=== PATIENT | female | born 1970 | race Caucasian/White ===

== ENCOUNTER 2019-02-01 11:49 | Inpatient (IN) | payer OTHER ==
[~2019-02-01] VITALS: Ht 170.2 cm; Wt 91.5 kg
[2019-02-01] MEDS ORDERED: SODIUM CHLORIDE 0.9% 1,000 ML IV ONE (12:19)
[2019-02-01 13:24] LABS: Basophils # (auto) 0 uL; Eosinophils # (auto) 0.3 uL; Hematocrit 34.2 % (36.0-46.0); Hemoglobin 11.4 g/dL (12.2-16.2); Lymphocytes # (auto) 0.8 uL; Mean Corpuscular Hgb Conc. 33.4 g/dL (32.0-36.0); Monocytes # (auto) 0.2 uL; Monocytes % (auto) 6.6 % (0.0-12.0); White Blood Cell 3.6 10^3/uL (4.4-10.8)
[2019-02-01 13:25] LABS: Basophils % (auto) 0.9 % (0.0-2.0); Eosinophils % (auto) 7.3 % (0.0-7.0); Lymphocytes % (auto) 21.3 % (10.0-50.0); Mean Corpuscular Hemoglobin 27.7 pg (28.0-32.0); Mean Corpuscular Volume 82.9 fL (80.0-100.0); Neutrophils # (auto) 2.3 uL; Neutrophils % (auto) 63.9 % (37.0-80.0); Nucleated Red Blood Cells % 0.1 %; Red Blood Cells 4.12 10^6/uL (4.0-5.20); Red Cell Distribution Width 14.1 % (11.8-14.3)
[2019-02-01 13:30] LABS: Platelet Count (auto) 11 10^3/uL (140-450)
[2019-02-01 13:45] LABS: INR 1.01 (0.9-1.15); Partial Thromboplastin Time 22.6 sec (23.64-32.05)
[2019-02-01 13:50] LABS: Alanine Aminotransferase 13 U/L (13-56); Albumin 3.4 g/dL (3.4-5.0); Anion Gap 7 (5-15); Aspartate Aminotransferase 12 U/L (15-37); BUN/Creatinine Ratio 10.7; Blood Urea Nitrogen 8 mg/dL (7-18); Calcium 8.4 mg/dL (8.5-10.1); Carbon Dioxide 26 mmol/L (21-32); Chloride 109 mmol/L (98-107); GFR African American 106 mL/min; GFR Non-African American 88 mL/min; Glucose 119 mg/dL (74-106); Sodium 142 mmol/L (136-145)
[2019-02-01 13:55] LABS: Alkaline Phosphatase 34 U/L (45-117); Bilirubin, Total 0.3 mg/dL (0.2-1.0); Total Protein 7.2 g/dL (6.4-8.2)
[2019-02-01] MEDS ORDERED: IOHEXOL 300 MG/ML 100ML BOTTLE IJ ONE ×3 (14:02→18:45)
[2019-02-01 15:29] LABS: Urine Bacteria FEW /hpf (None Seen); Urine Blood 1+ /uL (Negative); Urine Specific Gravity 1.011 (1.001-1.035); Urine WBC 1 /hpf (0 - 5)
[2019-02-01 17:33] VITALS: BP 113/56
[2019-02-01 17:52] VITALS: BP 121/79
[2019-02-01] MEDS ORDERED: NITROGLYCERIN 0.4 MG SL TAB SL PRN (18:15)
[2019-02-01] MEDS: SODIUM CHLORIDE 0.9% 1,000 ML IV SCH (18:15)
[2019-02-01] MEDS ORDERED: MORPHINE SULF INJ 2 MG/ML SYRINGE 1ML IV PRN (18:15)
[2019-02-01] MEDS ORDERED: IODIXANOL 320MG/ML 100ML BTL IV ONE (19:12)
[2019-02-01 19:27] LABS: CRP High Sensitivity 0.04 mg/dL (< 0.3)
[2019-02-01 21:00] VITALS: BP 123/53
[2019-02-02] MEDS: SODIUM CHLORIDE 0.9% 1,000 ML IV SCH ×2 (04:15→14:23)
[2019-02-02 04:35] LABS: Basophils # (auto) 0 uL; Eosinophils # (auto) 0.3 uL; Eosinophils % (auto) 8.1 % (0.0-7.0); Hemoglobin 10.6 g/dL (12.2-16.2); Monocytes # (auto) 0.3 uL; Neutrophils % (auto) 54.7 % (37.0-80.0); Nucleated Red Blood Cells % 0.1 %; White Blood Cell 3.7 10^3/uL (4.4-10.8)
[2019-02-02 04:37] LABS: Hematocrit 30.3 % (36.0-46.0); Lymphocytes % (auto) 28.1 % (10.0-50.0); Mean Corpuscular Hemoglobin 28.6 pg (28.0-32.0); Mean Corpuscular Hgb Conc. 34.9 g/dL (32.0-36.0); Monocytes % (auto) 8.1 % (0.0-12.0); Red Cell Distribution Width 14.1 % (11.8-14.3)
[2019-02-02 04:44] LABS: INR 1.04 (0.9-1.15); Partial Thromboplastin Time 23.6 sec (23.64-32.05)
[2019-02-02 04:46] LABS: Platelet Count (auto) 14 10^3/uL (140-450)
[2019-02-02 04:50] LABS: Calcium 7.6 mg/dL (8.5-10.1)
[2019-02-02 04:53] LABS: BUN/Creatinine Ratio 9.1; Bilirubin, Total 0.4 mg/dL (0.2-1.0); Total Protein 6.4 g/dL (6.4-8.2)
[2019-02-02] MEDS ORDERED: cefTRIAXone 1GM/50ML D5W 50 ML IV SCH (09:00)
[2019-02-02] MEDS ORDERED: methylPREDNISolone SOD SUCC 125 MG/2 ML VL IV SCH (12:00)
[2019-02-02] MEDS: methylPREDNISolone SOD SUCC 250 MG in SODIUM CHL 0.9% 100 ML IV SCH ×3 (12:38→23:48)
[2019-02-03] MEDS: SODIUM CHLORIDE 0.9% 1,000 ML IV SCH ×2 (00:38→10:22)
[2019-02-03] MEDS: methylPREDNISolone SOD SUCC 250 MG in SODIUM CHL 0.9% 100 ML IV SCH (06:10)
[2019-02-03 08:54] LABS: Basophils # (auto) 0 uL; Eosinophils # (auto) 0 uL; Neutrophils # (auto) 4.3 uL; Platelet Count (auto) 37 10^3/uL (140-450); Red Cell Distribution Width 13.6 % (11.8-14.3)
[2019-02-03 08:55] LABS: Basophils % (auto) 0.4 % (0.0-2.0); Hematocrit 31.9 % (36.0-46.0); Lymphocytes # (auto) 0.3 uL; Lymphocytes % (auto) 7.4 % (10.0-50.0); Mean Corpuscular Hemoglobin 28.2 pg (28.0-32.0); Mean Corpuscular Hgb Conc. 34.3 g/dL (32.0-36.0); Monocytes # (auto) 0 uL; Monocytes % (auto) 1.1 % (0.0-12.0); Neutrophils % (auto) 91.1 % (37.0-80.0); Nucleated Red Blood Cells % 0.1 %; Red Blood Cells 3.89 10^6/uL (4.0-5.20); White Blood Cell 4.7 10^3/uL (4.4-10.8)
[2019-02-03] MEDS: methylPREDNISolone SOD SUCC 125 MG in SODIUM CHL 0.9% 100 ML IV SCH ×3 (09:00→17:42)
[2019-02-03 10:05] LABS: Hepatitis B Surface Antibody Negative
[2019-02-03] MEDS ORDERED: IBUPROFEN 400 MG TAB PO ONE (10:15)
[2019-02-03 12:35] LABS: Hepatitis B Surface Antigen Negative (Negative); Hepatitis C Antibody Negative (Negative)
[2019-02-03 17:16] VITALS: BP 139/71
--- NOTE | 2019-02-03 17:55 | NUR ---
RECEIVED PT TO ROOM APPROX 1030. A/O X 4 . AMBULATORY. DENIES PAIN. VSS. MONITORING CLOSELY.
--- NOTE | 2019-02-03 19:30 | NUR ---
Opening shift note Patient in bed alert and oriented x 4 verbally coherent able to make needs known. Patient denies pain and discomfort at this time. Plan of care discussed, patient verbalized understanding. Spouse at bedside. All needs attended, will continue to monitor.
--- NOTE | 2019-02-03 21:01 | NUR ---
Patient complained of nausea. Paged [employer]PERVIS[employer] Mejia awaiting call back.
[2019-02-03] MEDS ORDERED: ONDANSETRON HCL 4 MG/2 ML VIAL IV PRN (21:30)
[2019-02-03 21:50] VITALS: BP 122/51
[2019-02-04] MEDS: methylPREDNISolone SOD SUCC 125 MG in SODIUM CHL 0.9% 100 ML IV SCH ×2 (00:30→06:15)
[2019-02-04] MEDS: SODIUM CHLORIDE 0.9% 1,000 ML IV SCH ×2 (01:46→06:15)
[2019-02-04 04:43] VITALS: BP 108/46
[2019-02-04 06:29] LABS: Basophils # (auto) 0 uL; Basophils % (auto) 0.3 % (0.0-2.0); Eosinophils # (auto) 0 uL; Hematocrit 33.1 % (36.0-46.0); Hemoglobin 11.3 g/dL (12.2-16.2); Lymphocytes # (auto) 0.5 uL; Lymphocytes % (auto) 5.1 % (10.0-50.0); Mean Corpuscular Hemoglobin 28.1 pg (28.0-32.0); Mean Corpuscular Hgb Conc. 34.2 g/dL (32.0-36.0); Mean Corpuscular Volume 82.2 fL (80.0-100.0); Monocytes # (auto) 0.2 uL; Monocytes % (auto) 2.3 % (0.0-12.0); Neutrophils # (auto) 8.3 uL; Neutrophils % (auto) 92.3 % (37.0-80.0); Nucleated Red Blood Cells % 0.1 %; Platelet Count (auto) 87 10^3/uL (140-450); Red Blood Cells 4.03 10^6/uL (4.0-5.20); Red Cell Distribution Width 14.2 % (11.8-14.3)
[2019-02-04 09:10] VITALS: BP 130/70
== END 2019-02-04 10:00 | disposition home or self-care (01) | DRG 813 ==
LOC: ER 11:49 → TELE 11:50 → CENTRAL 02-03 10:39
PROVIDERS: ADMIT Nurse Practitioner Acute Care; ATTEND Family Medicine
PROC: 30233R1 Transfusion of Nonautologous Platelets into Peripheral Vein, Percutaneous Approach (ICD-10-PCS; principal; 2019-02-01)
DX: D69.3 Immune thrombocytopenic purpura (principal); K11.5 Sialolithiasis; D64.9 Anemia, unspecified; M32.9 Systemic lupus erythematosus, unspecified; K11.20 Sialoadenitis, unspecified; R59.9 Enlarged lymph nodes, unspecified; K11.0 Atrophy of salivary gland; S30.0XXA Contusion of lower back and pelvis, initial encounter; S90.32XA Contusion of left foot, initial encounter; S90.31XA Contusion of right foot, initial encounter; X58.XXXA Exposure to other specified factors, initial encounter; Y93.89 Activity, other specified; Z80.42 Family history of malignant neoplasm of prostate; Z80.41 Family history of malignant neoplasm of ovary; Z80.49 Family history of malignant neoplasm of other genital organs; Y92.89 Other specified places as the place of occurrence of the external cause; Y99.8 Other external cause status; Z79.899 Other long term (current) drug therapy
CPT/HCPCS: 36415; 70470; 70491; 71045; 71260; 74177; 80053; 81001; 82607; 83615; 84436; 84443; 84484; 85025; 85610; 85652; 85730; 86038; 86141; 86225; 86235; 86706; 86803; 86850; 86900; 86901; 87340; G0378; J0696; Q9967

== ENCOUNTER 2019-02-09 20:05 | Inpatient (IN) | payer OTHER ==
[~2019-02-09] VITALS: Ht 170.2 cm; Wt 81.6 kg
[2019-02-09 23:07] LABS: Mean Corpuscular Hgb Conc. 34.1 g/dL (32.0-36.0)
[2019-02-09 23:09] LABS: Hematocrit 33.6 % (36.0-46.0); Hemoglobin 11.5 g/dL (12.2-16.2); Mean Corpuscular Hemoglobin 27.7 pg (28.0-32.0); Mean Corpuscular Volume 81.1 fL (80.0-100.0); Red Blood Cells 4.15 10^6/uL (4.0-5.20); Red Cell Distribution Width 14.1 % (11.8-14.3); White Blood Cell 8.1 10^3/uL (4.4-10.8)
[2019-02-09 23:14] LABS: Platelet Count (auto) 8 10^3/uL (140-450)
[2019-02-09 23:15] LABS: Basophils % (manual) 0 (0.0-2.0); Blast Cells 0; Metamyelocytes % 0; Myelocytes % 0; Promyelocytes % 0; Reactive Lymphocytes 0
[2019-02-09 23:23] LABS: Albumin 3.3 g/dL (3.4-5.0); BUN/Creatinine Ratio 21.2; Calcium 8.5 mg/dL (8.5-10.1); Potassium 4.1 mmol/L (3.5-5.1)
[2019-02-09 23:26] LABS: Bilirubin, Total 0.3 mg/dL (0.2-1.0); Total Protein 6.7 g/dL (6.4-8.2)
[2019-02-09 23:27] LABS: INR 1.05 (0.9-1.15)
[2019-02-09 23:36] LABS: Band Neutrophils % (manual) 4; Eosinophils % (manual) 1 (0-7); Lymphocytes % (manual) 9 (10.0-50.0); Monocytes % (manual) 4 (0-12)
[2019-02-10] VITALS (8 sets, daily range): BP systolic 106–133; BP diastolic 47–76
[2019-02-10 01:22] LABS: Urine Bacteria FEW /hpf (None Seen); Urine Blood 1+ /uL (Negative); Urine Mucus FEW (None Seen); Urine Specific Gravity 1.015 (1.001-1.035); Urine WBC 1 /hpf (0 - 5)
[2019-02-10] MEDS ORDERED: predniSONE 20 MG TAB PO ONE (03:30)
[2019-02-10] MEDS ORDERED: ONDANSETRON HCL 4 MG/2 ML VIAL IV PRN (04:45)
[2019-02-10] MEDS ORDERED: ACETAMINOPHEN 500 MG TAB PO PRN (04:45)
[2019-02-10 05:11] LABS: Hemoglobin 10.7 g/dL (12.2-16.2); Mean Corpuscular Hemoglobin 27.8 pg (28.0-32.0); Mean Corpuscular Hgb Conc. 34.4 g/dL (32.0-36.0); Mean Corpuscular Volume 80.9 fL (80.0-100.0); Red Blood Cells 3.84 10^6/uL (4.0-5.20); Red Cell Distribution Width 14.2 % (11.8-14.3); White Blood Cell 9.6 10^3/uL (4.4-10.8)
[2019-02-10 05:28] LABS: BUN/Creatinine Ratio 20.9
[2019-02-10 05:29] LABS: Platelet Count (auto) 8 10^3/uL (140-450)
[2019-02-10 05:30] LABS: Blast Cells 0; Eosinophils % (manual) 0 (0-7); Myelocytes % 0; Promyelocytes % 0; Reactive Lymphocytes 0
[2019-02-10 05:46] LABS: Band Neutrophils % (manual) 2; Basophils % (manual) 1 (0.0-2.0); Lymphocytes % (manual) 11 (10.0-50.0); Metamyelocytes % 2; Monocytes % (manual) 5 (0-12)
[2019-02-10] MEDS ORDERED: HYDROcodone-ACET 5/325MG TAB PO PRN (06:15)
[2019-02-10] MEDS ORDERED: PRE5T (06:54)
--- NOTE | 2019-02-10 07:08 | NUR ---
Telemetry admit from [facility] admitted to Telemetry unit after SBAR received. Patient oriented to room and routines,primary RN Carly Moreland, [facility], room 272, bed A, Pt educated on unit policies regarding patient care and visiting hours. Patient now on continuous telemetry monitoring, tele box #[id number] and telemetry reading on arrival to unit is Sinus Rythym. weighed by bedscale and encouraged to call if they need something. Plan of care discussed all questions and concerns addressed, patient verbalized understanding,agreeable.
--- NOTE | 2019-02-10 07:10 | NUR ---
REPORT GIVEN TO PRETTY PT RESTING IN BED, NO ACUTE DISTRESS NOTED, NO COMPLAINTS VOICED, BED IN LOW POSITION, SR X 2 UP.
--- NOTE | 2019-02-10 08:49 | NUR ---
PLATELETS UNAVAILABLE Call placed to blood bank, RN spoke with Sabine who states plt's have been ordered but are not available at this time. Sabine states she will call RN once plt's available for transfusion. Patient aware of transfusion order, consents are signed and in chart.
--- NOTE | 2019-02-10 09:00 | NUR ---
EDUCATION Patient provided with printed and verbal education on diagnoses, tests, and treatments. Patient verbalized understanding and stated "thank you". Patients and best friend at bedside.
[2019-02-10] MEDS: PANTOPRAZOLE 40 MG TAB PO SCH (10:38)
--- NOTE | 2019-02-10 13:06 | NUR ---
TRANSFUSION Patient in restroom at this time, unable to check V.S. and increase rate of infusion. Will continue to monitor and follow through once patient returns to bed.
[2019-02-10] MEDS ORDERED: DEXTROSE (50%) 50ML SYRG IV PRN (13:15)
--- NOTE | 2019-02-10 13:28 | NUR ---
ROUNDING Dr Davidson rounding at nursing station. Orders to repeat CBC one hour post transfusion and call MD with results.
[2019-02-10] MEDS ORDERED: predniSONE 20 MG TAB PO SCH (14:00)
[2019-02-10] MEDS: methylPREDNISolone SOD SUCC 125 MG/2 ML VL IV SCH ×3 (14:02→23:53)
[2019-02-10 15:47] LABS: Basophils # (auto) 0 uL; Eosinophils # (auto) 0 uL; Eosinophils % (auto) 0.1 % (0.0-7.0); Hematocrit 34.3 % (36.0-46.0); Lymphocytes # (auto) 0.9 uL; Mean Corpuscular Volume 80.2 fL (80.0-100.0); White Blood Cell 13.1 10^3/uL (4.4-10.8)
[2019-02-10 15:50] LABS: Basophils % (auto) 0.1 % (0.0-2.0); Hemoglobin 11.8 g/dL (12.2-16.2); Lymphocytes % (auto) 6.7 % (10.0-50.0); Mean Corpuscular Hemoglobin 27.5 pg (28.0-32.0); Mean Corpuscular Hgb Conc. 34.3 g/dL (32.0-36.0); Monocytes # (auto) 1.3 uL; Monocytes % (auto) 9.5 % (0.0-12.0); Neutrophils % (auto) 83.6 % (37.0-80.0); Red Blood Cells 4.28 10^6/uL (4.0-5.20)
[2019-02-10 16:04] LABS: Platelet Count (auto) 12 10^3/uL (140-450)
[2019-02-10] MEDS: ACCU-CHEK COMFORT CURVE STRIP VI SCH ×2 (17:00→21:11)
[2019-02-10] MEDS: InsuLIN REG 1unit/0.01ml Soln (100units/ml) SC SCH ×2 (17:00→21:11)
[2019-02-11 04:44] VITALS: BP 126/65
[2019-02-11] MEDS: methylPREDNISolone SOD SUCC 125 MG/2 ML VL IV SCH ×3 (06:20→17:13)
[2019-02-11] MEDS: InsuLIN REG 1unit/0.01ml Soln (100units/ml) SC SCH ×4 (06:20→22:27)
[2019-02-11] MEDS: PANTOPRAZOLE 40 MG TAB PO SCH (06:20)
[2019-02-11] MEDS: ACCU-CHEK COMFORT CURVE STRIP VI SCH ×4 (06:21→22:25)
[2019-02-11 06:29] LABS: % Iron Saturation 9.3 % (15-50)
[2019-02-11 08:00] VITALS: BP 111/71
--- NOTE | 2019-02-11 08:00 | NUR ---
PT RESTING IN BED, NO DISTRESS NOTED. PT REPORTS NO PAIN AT THIS TIME. SIDE RAILS UP X 2, BED IN LOWEST LOCKED POSITION, CALL LIGHT IN REACH. WILL CONTINUE TO MONITOR.
[2019-02-11 12:40] VITALS: BP 125/75
[2019-02-11 14:12] LABS: Basophils # (auto) 0 uL; Eosinophils # (auto) 0 uL; Hematocrit 36.2 % (36.0-46.0); Hemoglobin 12.3 g/dL (12.2-16.2); Lymphocytes # (auto) 0.6 uL; Lymphocytes % (auto) 3.7 % (10.0-50.0); Mean Corpuscular Hemoglobin 27.4 pg (28.0-32.0); Mean Corpuscular Hgb Conc. 33.9 g/dL (32.0-36.0); Mean Corpuscular Volume 80.7 fL (80.0-100.0); Monocytes # (auto) 0.6 uL; Monocytes % (auto) 3.8 % (0.0-12.0); Neutrophils # (auto) 15.6 uL; Neutrophils % (auto) 92.5 % (37.0-80.0); Platelet Count (auto) 26 10^3/uL (140-450); Red Blood Cells 4.49 10^6/uL (4.0-5.20); White Blood Cell 16.9 10^3/uL (4.4-10.8)
--- NOTE | 2019-02-11 16:43 | NUR ---
SAW DR SUN AT NURSING STATION, REPORTED TO MD THAT PT WBC COUNT IS 16.9 FROM 13.1 AND RISING. AWARE.
[2019-02-11 16:49] VITALS: BP 123/76
--- NOTE | 2019-02-11 19:30 | NUR ---
Opening shift note Patient in bed watching tv alert and oriented x 4, verbally coherent able to make needs known. Patient's respiration even and unlabored, denies pain or any discomfort at this time. Plan of care discussed, patient verbalized understanding. All needs attended, will continue to monitor.
--- NOTE | 2019-02-11 20:51 | NUR ---
UA sample obtained, sent to lab via mai. Addendum: 02/11/19 at 2052 by Soheila Rock RN wrong patient
[2019-02-11 21:35] VITALS: BP 120/65
[2019-02-12] MEDS: methylPREDNISolone SOD SUCC 125 MG/2 ML VL IV SCH ×3 (00:30→11:15)
[2019-02-12 05:19] VITALS: BP 120/74
[2019-02-12] MEDS: PANTOPRAZOLE 40 MG TAB PO SCH (06:33)
[2019-02-12] MEDS: InsuLIN REG 1unit/0.01ml Soln (100units/ml) SC SCH ×2 (06:34→11:15)
[2019-02-12] MEDS: ACCU-CHEK COMFORT CURVE STRIP VI SCH ×2 (06:34→11:15)
[2019-02-12 08:54] VITALS: BP 110/59
[2019-02-12 11:31] LABS: Basophils # (auto) 0 uL; Basophils % (auto) 0.1 % (0.0-2.0); Eosinophils # (auto) 0 uL; Hemoglobin 12.1 g/dL (12.2-16.2); Monocytes # (auto) 0.4 uL; Neutrophils # (auto) 14.8 uL
[2019-02-12 11:33] LABS: Hematocrit 36.5 % (36.0-46.0); Lymphocytes # (auto) 0.5 uL; Lymphocytes % (auto) 3.1 % (10.0-50.0); Mean Corpuscular Hgb Conc. 33.1 g/dL (32.0-36.0); Mean Corpuscular Volume 81.6 fL (80.0-100.0); Monocytes % (auto) 2.2 % (0.0-12.0); Neutrophils % (auto) 94.6 % (37.0-80.0); Platelet Count (auto) 45 10^3/uL (140-450); Red Blood Cells 4.47 10^6/uL (4.0-5.20); Red Cell Distribution Width 14.4 % (11.8-14.3); White Blood Cell 15.7 10^3/uL (4.4-10.8)
[2019-02-12 14:40] VITALS: BP 133/75
[2019-02-12 14:54] VITALS: BP 133/75
[2019-02-12 15:54] VITALS: BP 146/47
--- NOTE | 2019-02-12 17:30 | NUR ---
SABINO WEBER DISCHARGED PATIENT. SHE REPORTS PATIENT TOOK ALL DISCHARGED PAPERWORK THAT PATIENT SIGNED HOME WITH HER BY ACCIDENT.
--- NOTE | 2019-02-12 17:32 | NUR ---
Discharge instructions given as ordered. Encourage to follow up with Dr. Kaba as instructed. All questions and concerns addressed. Patient verbalized understanding. Medication reconciliation form completed and copy given to patient. IV removed with catheter intact, pressure dressing applied. Telemetry unit returned to ICU. Patient taken to vehicle via wheelchair with all personal belongings, accompanied by staff and spouse. No distress noted at time of departure.
== END 2019-02-12 17:15 | disposition home or self-care (01) | DRG 813 ==
LOC: ER 20:11 → TELE 20:12 → TELE-WESTW 02-10 06:20
PROVIDERS: ADMIT Nurse Practitioner Family; ATTEND Internal Medicine Pulmonary Disease
PROC: 30233R1 Transfusion of Nonautologous Platelets into Peripheral Vein, Percutaneous Approach (ICD-10-PCS; principal; 2019-02-10)
DX: D69.3 Immune thrombocytopenic purpura (principal); M32.9 Systemic lupus erythematosus, unspecified; Z80.49 Family history of malignant neoplasm of other genital organs; Z80.42 Family history of malignant neoplasm of prostate; Z80.41 Family history of malignant neoplasm of ovary
CPT/HCPCS: 36415; 80048; 80053; 81001; 82728; 82962; 83010; 83036; 83540; 83550; 83615; 85007; 85025; 85027; 85610; 86038; 86850; 86880; 86900; 86901; 87081; G0378; J1815

== ENCOUNTER → 2019-02-09 | Outpatient (CLI) | payer OTHER ==
[~2019-02-09] MED LIST: PRE5T
[2019-02-09 12:57] LABS: Basophils # (auto) 0 uL; Eosinophils # (auto) 0.1 uL; Neutrophils # (auto) 7.4 uL
[2019-02-09 13:00] LABS: Basophils % (auto) 0.1 % (0.0-2.0); Eosinophils % (auto) 0.8 % (0.0-7.0); Hematocrit 33.5 % (36.0-46.0); Hemoglobin 11.6 g/dL (12.2-16.2); Lymphocytes # (auto) 2.1 uL; Lymphocytes % (auto) 20.1 % (10.0-50.0); Mean Corpuscular Hemoglobin 27.9 pg (28.0-32.0); Mean Corpuscular Hgb Conc. 34.6 g/dL (32.0-36.0); Mean Corpuscular Volume 80.7 fL (80.0-100.0); Monocytes % (auto) 9.2 % (0.0-12.0); Neutrophils % (auto) 69.8 % (37.0-80.0); Nucleated Red Blood Cells % 0.1 %; Red Blood Cells 4.15 10^6/uL (4.0-5.20); White Blood Cell 10.5 10^3/uL (4.4-10.8)
[2019-02-09 13:09] LABS: Albumin 3.3 g/dL (3.4-5.0); Calcium 8.1 mg/dL (8.5-10.1); Potassium 3.2 mmol/L (3.5-5.1)
[2019-02-09 13:14] LABS: BUN/Creatinine Ratio 18.7; Bilirubin, Total 0.6 mg/dL (0.2-1.0); Total Protein 6.7 g/dL (6.4-8.2)
[2019-02-09 14:11] LABS: Platelet Count (auto) 9 10^3/uL (140-450)
== END | disposition home or self-care (01) ==
LOC: LAB 12:08
PROVIDERS: ATTEND Family Medicine
DX: D64.9 Anemia, unspecified (principal); I10 Essential (primary) hypertension
CPT/HCPCS: 36415; 80053; 85025

== ENCOUNTER → 2019-02-15 | Outpatient (CLI) | payer OTHER ==
[2019-02-15 09:47] LABS: Hematocrit 36.9 % (36.0-46.0); Hemoglobin 12.2 g/dL (12.2-16.2); Mean Corpuscular Hemoglobin 27.1 pg (28.0-32.0); Platelet Count (auto) 28 10^3/uL (140-450); Red Cell Distribution Width 14.3 % (11.8-14.3); White Blood Cell 12.4 10^3/uL (4.4-10.8)
[2019-02-15 09:53] LABS: Basophils % (manual) 0 (0.0-2.0); Blast Cells 0; Eosinophils % (manual) 0 (0-7); Metamyelocytes % 0; Myelocytes % 0; Promyelocytes % 0; Reactive Lymphocytes 0
[2019-02-15 10:48] LABS: Potassium 5.2 mmol/L (3.5-5.1)
[2019-02-15 10:51] LABS: Albumin 3.5 g/dL (3.4-5.0); BUN/Creatinine Ratio 21.3; Calcium 8.9 mg/dL (8.5-10.1)
[2019-02-15 10:53] LABS: Bilirubin, Total 0.5 mg/dL (0.2-1.0); Total Protein 6.7 g/dL (6.4-8.2)
[2019-02-15 11:25] LABS: Band Neutrophils % (manual) 4; Lymphocytes % (manual) 7 (10.0-50.0); Monocytes % (manual) 5 (0-12)
== END | disposition home or self-care (01) ==
LOC: LAB 09:14
DX: D69.6 Thrombocytopenia, unspecified (principal)
CPT/HCPCS: 36415; 80053; 85007; 85027

== ENCOUNTER → 2019-02-21 | Outpatient (CLI) | payer OTHER ==
[2019-02-21 13:46] LABS: Basophils # (auto) 0 uL; Basophils % (auto) 0.2 % (0.0-2.0); Eosinophils # (auto) 0 uL; Eosinophils % (auto) 0.1 % (0.0-7.0); Hemoglobin 11.9 g/dL (12.2-16.2); Lymphocytes # (auto) 0.4 uL; Mean Corpuscular Hemoglobin 27.6 pg (28.0-32.0); Mean Corpuscular Hgb Conc. 33.9 g/dL (32.0-36.0); Mean Corpuscular Volume 81.5 fL (80.0-100.0); Monocytes # (auto) 0.8 uL; Monocytes % (auto) 7.3 % (0.0-12.0); Neutrophils # (auto) 9.5 uL; Neutrophils % (auto) 88.4 % (37.0-80.0); Platelet Count (auto) 202 10^3/uL (140-450); Red Cell Distribution Width 14.9 % (11.8-14.3); White Blood Cell 10.8 10^3/uL (4.4-10.8)
[2019-02-21 14:12] LABS: Albumin 3.3 g/dL (3.4-5.0); Calcium 8.2 mg/dL (8.5-10.1)
[2019-02-21 14:15] LABS: BUN/Creatinine Ratio 19.5; Bilirubin, Total 0.5 mg/dL (0.2-1.0); Total Protein 6.3 g/dL (6.4-8.2)
== END | disposition home or self-care (01) ==
LOC: LAB 13:25
PROVIDERS: ATTEND Internal Medicine
DX: D69.6 Thrombocytopenia, unspecified (principal)
CPT/HCPCS: 36415; 80053; 83615; 85025

== ENCOUNTER → 2019-03-01 | Outpatient (CLI) | payer OTHER ==
[2019-03-01 10:14] LABS: Basophils # (auto) 0 uL; Basophils % (auto) 0.4 % (0.0-2.0); Eosinophils # (auto) 0.1 uL; Eosinophils % (auto) 0.9 % (0.0-7.0); Hematocrit 33.3 % (36.0-46.0); Hemoglobin 11.1 g/dL (12.2-16.2); Lymphocytes # (auto) 0.7 uL; Mean Corpuscular Hgb Conc. 33.3 g/dL (32.0-36.0); Mean Corpuscular Volume 81.1 fL (80.0-100.0); Monocytes # (auto) 0.6 uL; Monocytes % (auto) 6.9 % (0.0-12.0); Neutrophils # (auto) 6.7 uL; Neutrophils % (auto) 82.8 % (37.0-80.0); Platelet Count (auto) 161 10^3/uL (140-450); Red Cell Distribution Width 15.3 % (11.8-14.3); White Blood Cell 8.1 10^3/uL (4.4-10.8)
== END | disposition home or self-care (01) ==
LOC: LAB 09:57
PROVIDERS: ATTEND Internal Medicine
DX: D69.6 Thrombocytopenia, unspecified (principal)
CPT/HCPCS: 36415; 85025

== ENCOUNTER → 2019-03-07 | Outpatient (CLI) | payer OTHER ==
[2019-03-07 12:53] LABS: Hemoglobin 12.8 g/dL (12.2-16.2)
[2019-03-07 12:55] LABS: Hematocrit 38.4 % (36.0-46.0); Mean Corpuscular Hemoglobin 26.6 pg (28.0-32.0); Mean Corpuscular Hgb Conc. 33.3 g/dL (32.0-36.0); Platelet Count (auto) 199 10^3/uL (140-450); Red Cell Distribution Width 15.4 % (11.8-14.3); White Blood Cell 7.2 10^3/uL (4.4-10.8)
[2019-03-07 12:56] LABS: Band Neutrophils % (manual) 0; Basophils % (manual) 0 (0.0-2.0); Blast Cells 0; Metamyelocytes % 0; Myelocytes % 0; Promyelocytes % 0; Reactive Lymphocytes 0
[2019-03-07 13:37] LABS: Eosinophils % (manual) 1 (0-7); Lymphocytes % (manual) 16 (10.0-50.0); Monocytes % (manual) 9 (0-12)
[2019-03-07 14:10] LABS: Ferritin 5.6 ng/mL (10-322); Potassium 3.2 mmol/L (3.5-5.1)
[2019-03-07 14:15] LABS: % Iron Saturation 6.5 % (15-50)
[2019-03-07 14:20] LABS: Albumin 3.4 g/dL (3.4-5.0); Bilirubin, Total 0.4 mg/dL (0.2-1.0); Calcium 8.7 mg/dL (8.5-10.1); Total Protein 6.4 g/dL (6.4-8.2)
== END | disposition home or self-care (01) ==
LOC: LAB 12:16
PROVIDERS: ATTEND Internal Medicine Hematology & Oncology
DX: D69.6 Thrombocytopenia, unspecified (principal)
CPT/HCPCS: 36415; 80053; 82607; 82728; 83540; 83550; 85007; 85027

== ENCOUNTER → 2019-03-16 | Outpatient (CLI) | payer OTHER ==
[2019-03-16 15:01] LABS: Basophils # (auto) 0.1 uL; Eosinophils # (auto) 0.1 uL; Hematocrit 36.1 % (36.0-46.0); Hemoglobin 12.3 g/dL (12.2-16.2); Monocytes # (auto) 0.5 uL
[2019-03-16 15:02] LABS: Basophils % (auto) 0.6 % (0.0-2.0); Eosinophils % (auto) 0.6 % (0.0-7.0); Lymphocytes # (auto) 1.2 uL; Lymphocytes % (auto) 12.7 % (10.0-50.0); Mean Corpuscular Hemoglobin 26.2 pg (28.0-32.0); Mean Corpuscular Hgb Conc. 34.2 g/dL (32.0-36.0); Mean Corpuscular Volume 76.8 fL (80.0-100.0); Neutrophils # (auto) 7.4 uL; Neutrophils % (auto) 81.1 % (37.0-80.0); Platelet Count (auto) 242 10^3/uL (140-450); Red Cell Distribution Width 15.4 % (11.8-14.3); White Blood Cell 9.1 10^3/uL (4.4-10.8)
[2019-03-16 15:37] LABS: Albumin 3.4 g/dL (3.4-5.0); Calcium 8.5 mg/dL (8.5-10.1); Potassium 3.4 mmol/L (3.5-5.1)
[2019-03-16 15:39] LABS: BUN/Creatinine Ratio 12.9; Bilirubin, Total 0.4 mg/dL (0.2-1.0); Total Protein 6.5 g/dL (6.4-8.2)
== END | disposition home or self-care (01) ==
LOC: LAB 14:51
PROVIDERS: ATTEND Internal Medicine
DX: D69.6 Thrombocytopenia, unspecified (principal)
CPT/HCPCS: 36415; 80053; 83615; 85025

== ENCOUNTER → 2019-04-05 | Outpatient (CLI) | payer OTHER ==
[2019-04-05 11:29] LABS: Basophils # (auto) 0 uL; Basophils % (auto) 0.5 % (0.0-2.0); Eosinophils # (auto) 0.1 uL; Eosinophils % (auto) 1.6 % (0.0-7.0); Hematocrit 34.4 % (36.0-46.0); Hemoglobin 11.3 g/dL (12.2-16.2); Lymphocytes # (auto) 1.1 uL; Lymphocytes % (auto) 12.6 % (10.0-50.0); Mean Corpuscular Hemoglobin 24.9 pg (28.0-32.0); Mean Corpuscular Hgb Conc. 32.8 g/dL (32.0-36.0); Monocytes # (auto) 0.7 uL; Monocytes % (auto) 8.2 % (0.0-12.0); Neutrophils # (auto) 6.9 uL; Neutrophils % (auto) 77.1 % (37.0-80.0); Nucleated Red Blood Cells % 0.1 %; Platelet Count (auto) 407 10^3/uL (140-450); Red Blood Cells 4.53 10^6/uL (4.0-5.20); Red Cell Distribution Width 15.9 % (11.8-14.3); White Blood Cell 8.9 10^3/uL (4.4-10.8)
[2019-04-05 11:54] LABS: Albumin 3.3 g/dL (3.4-5.0); Bilirubin, Total 0.3 mg/dL (0.2-1.0); Calcium 8.6 mg/dL (8.5-10.1); Potassium 3.4 mmol/L (3.5-5.1); Total Protein 6.6 g/dL (6.4-8.2)
== END | disposition home or self-care (01) ==
LOC: LAB 11:13
PROVIDERS: ATTEND Internal Medicine
DX: D69.6 Thrombocytopenia, unspecified (principal)
CPT/HCPCS: 36415; 80053; 83615; 85025

== ENCOUNTER → 2019-05-16 | Outpatient (CLI) | payer OTHER ==
[2019-05-16 12:16] LABS: Eosinophils # (auto) 0.2 uL; Hemoglobin 11.3 g/dL (12.2-16.2); Monocytes # (auto) 0.4 uL; Neutrophils # (auto) 2.4 uL
[2019-05-16 12:18] LABS: Basophils # (auto) 0 uL; Basophils % (auto) 1.1 % (0.0-2.0); Eosinophils % (auto) 5.9 % (0.0-7.0); Hematocrit 35.1 % (36.0-46.0); Lymphocytes # (auto) 1.1 uL; Lymphocytes % (auto) 25.7 % (10.0-50.0); Mean Corpuscular Hemoglobin 23.4 pg (28.0-32.0); Mean Corpuscular Hgb Conc. 32.2 g/dL (32.0-36.0); Mean Corpuscular Volume 72.6 fL (80.0-100.0); Monocytes % (auto) 10.6 % (0.0-12.0); Neutrophils % (auto) 56.7 % (37.0-80.0); Platelet Count (auto) 330 10^3/uL (140-450); Red Blood Cells 4.83 10^6/uL (4.0-5.20); Red Cell Distribution Width 16.6 % (11.8-14.3); White Blood Cell 4.2 10^3/uL (4.4-10.8)
[2019-05-16 12:45] LABS: Albumin 3.4 g/dL (3.4-5.0); Calcium 8.4 mg/dL (8.5-10.1)
[2019-05-16 12:49] LABS: BUN/Creatinine Ratio 13.2; Bilirubin, Total 0.4 mg/dL (0.2-1.0); Total Protein 6.4 g/dL (6.4-8.2)
== END | disposition home or self-care (01) ==
LOC: LAB 11:55
PROVIDERS: ATTEND Internal Medicine
DX: D69.6 Thrombocytopenia, unspecified (principal)
CPT/HCPCS: 36415; 80053; 83615; 85025

== ENCOUNTER → 2019-08-25 | Outpatient (CLI) | payer OTHER ==
[2019-08-25 11:20] LABS: Basophils # (auto) 0 10 ^3/uL (0-0.2); Basophils % (auto) 1.1 % (0.0-2.0); Eosinophils # (auto) 0.4 10 ^3/uL (0-0.8); Eosinophils % (auto) 9.1 % (0.0-7.0); Hematocrit 42.4 % (36.0-46.0); Hemoglobin 14.7 g/dL (12.2-16.2); Lymphocytes # (auto) 0.8 10 ^3/uL (0.4-5.4); Lymphocytes % (auto) 19.3 % (10.0-50.0); Mean Corpuscular Hemoglobin 29.3 pg (28.0-32.0); Mean Corpuscular Hgb Conc. 34.7 g/dL (32.0-36.0); Mean Corpuscular Volume 84.4 fL (80.0-100.0); Monocytes # (auto) 0.4 10 ^3/uL (0-1.3); Monocytes % (auto) 9.4 % (0.0-12.0); Neutrophils # (auto) 2.6 10 ^3/uL (1.6-8.6); Neutrophils % (auto) 61.1 % (37.0-80.0); Nucleated Red Blood Cells % 0.1 %; Platelet Count (auto) 289 10^3/uL (140-450); Red Blood Cells 5.03 10^6/uL (4.0-5.20); Red Cell Distribution Width 18.1 % (11.8-14.3); White Blood Cell 4.3 10^3/uL (4.4-10.8)
[2019-08-25 11:39] LABS: Albumin 3.7 g/dL (3.4-5.0); Calcium 8.8 mg/dL (8.5-10.1); Potassium 4.1 mmol/L (3.5-5.1)
[2019-08-25 11:43] LABS: BUN/Creatinine Ratio 16.7; Bilirubin, Total 0.6 mg/dL (0.2-1.0); Total Protein 6.8 g/dL (6.4-8.2)
== END | disposition home or self-care (01) ==
LOC: LAB 11:02
PROVIDERS: ATTEND Internal Medicine
DX: D69.6 Thrombocytopenia, unspecified (principal)
CPT/HCPCS: 36415; 80053; 82728; 83540; 83550; 85025